=== PATIENT | male | born 2000 | race African-American/Black ===

== ENCOUNTER 2024-06-06 11:24 | Emergency (ER) | payer OTHER, SELFPAY ==
[2024-06-06 12:05] VITALS: BP 145/88; PULSE 94; RESP 16; TEMP 37; O2SAT 97; BMI 35.9
--- NOTE | 2024-06-06 12:14 | ED.BACK ---
HPI - Back Pain/Injury General Chief Complaint: Back Pain/Injury Stated Complaint: Back injury Source: patient Limitations: no limitations History of Present Illness ED Provider: Jeanie Watkins PA-C Related Data Previous Rx's ?Medication ?Instructions ?Recorded meloxicam 15 mg tablet 15 mg PO DAILY #7 tabs 06/06/24 methocarbamol 750 mg tablet 750 mg PO QID PRN pain #30 tabs 06/06/24 Allergies Allergy/AdvReac Type Severity Reaction Status Date / Time No Known Allergies Allergy Verified 06/06/24 12:14 [facility] Social History Social History Advance Directives: No Do you have a plan to hurt others: No Plan Physical Exam Vital Signs: Vital Signs: Last Vital Signs Temp 98.6 F 06/06/24 12:05 Pulse 94 06/06/24 12:05 Resp 16 06/06/24 12:05 BP 145/88 H 06/06/24 12:05 Pulse Ox 97 06/06/24 12:05 O2 Del Method Room Air 06/06/24 12:05 BMI result Body Mass Index 35.9 Discharge Plan Discharge Clinical Impression: Back strain Patient Disposition: Home, Self-Care Instructions: Back Pain (ED) Additional Instructions: You are being treated for back strain/sprain. See home care instructions. Use the meloxicam, this is an anti-inflammatory, as directed. Take it with food. Use the methocarbamol, this is a muscle relaxant, as needed for your pain. To note this medication we will cause drowsiness, do not drive or operate machinery while taking the medication. You need to follow up with your primary care provider. Prescriptions: New methocarbamol 750 mg tablet 750 mg PO QID PRN (Reason: pain) Qty: 30 0RF meloxicam 15 mg tablet 15 mg PO DAILY Qty: 7 0RF Stand Alone Forms: Work/School Release Print Language: [place]
== END 2024-06-06 12:37 | disposition home or self-care (01) ==
PROVIDERS: Emergency Provider Emergency Medicine
DX: M54.50 Low back pain, unspecified (principal)
CPT/HCPCS: 99281; 99283